=== PATIENT | male | born 1985 | race Caucasian/White ===

== ENCOUNTER 2018-05-19 23:20 | Emergency (ER) | payer OTHER ==
[~2018-05-19] VITALS: Ht 175.3 cm; Wt 98.7 kg
[~2018-05-19 23:20] MED LIST: BUSPAR10 MG PO; CATAPRES0.1 MG PO; CLONIDINE HCL0.1 MG PO; GABAPENTIN600 MG PO; LITHOBID300 MG PO; NEURONTIN600 MG PO; PROTONIX40 MG PO; ZANAFLEX4 MG PO
[2018-05-19 23:23] VITALS: BP 138/105
[2018-05-20 00:08] LABS: HEMATOCRIT 45.8 % (38.0-50.0); HEMOGLOBIN 16.5 G/DL (12.5-16.6); MCH 31.4 PG (29.0-34.0); MCV 87.1 FL (86-99); PLATELET COUNT 184 K/uL (156-360); RBC DIS.WIDTH-SD 41.3 % (39-53); RED BLOOD COUNT 5.26 M/uL (4.00-5.50); WHITE BLOOD COUNT 7.7 K/uL (4.1-10.2)
[2018-05-20 00:28] LABS: ALBUMIN 4.5 g/dL (3.2-4.8); CHLORIDE 106 mEq/L (99-109); POTASSIUM 4.2 mEq/L (3.7-5.4); SODIUM 141 mEq/L (136-147)
[2018-05-20 00:30] LABS: GLUCOSE 136 mg/dL (70-99)
[2018-05-20 00:32] LABS: TOTAL BILIRUBIN 0.6 mg/dL (0.0-1.0)
[2018-05-20 00:34] LABS: ALKALINE PHOSPHATASE 157 IU/L (3-129); CREATININE 1.2 mg/dL (0.6-1.3); GFR ESTIMATE (CALCULATED) > 59 mL/min/ (58.99-99999)
[2018-05-20 00:35] LABS: UREA NITROGEN (BUN) 12 mg/dL (9-23)
[2018-05-20 00:36] LABS: AST (GOT) 27 IU/L (2-34)
[2018-05-20 00:37] LABS: ALT (GPT) 32 IU/L (3-49)
[2018-05-20] MEDS ORDERED: MEDROL DOSEPAK4 MG PO (00:49)
[2018-05-20] MEDS ORDERED: ATARAX,VISTARIL50 MG PO (01:16)
[2018-05-20 09:37] LABS: TREPONEMA ANTIBODY NEGATIVE (NEGATIVE)
== END 2018-05-20 01:28 | disposition home or self-care (01) ==
LOC: EME 23:20
PROVIDERS: Physician Assistant
DX: R21 Rash and other nonspecific skin eruption (principal); F90.9 Attention-deficit hyperactivity disorder, unspecified type; F17.200 Nicotine dependence, unspecified, uncomplicated
CPT/HCPCS: 80053; 85027; 86780; J7512; Q0177